=== PATIENT | male | born 1995 ===

== ENCOUNTER 2024-03-07 05:30 | Day surgery (SDC) | payer OTHER ==
[2024-03-05 14:20] LABS: HEMATOCRIT 39.9 % (39.0-48.0); HEMOGLOBIN 13.5 g/dL (13-16.00); MEAN CELL VOLUME 82.5 fL (80.0-100.00); MEAN CORPUSCULAR HEMOGLOBIN 27.8 pg (27.00-32.0); MEAN CORPUSCULAR HGB CONC 33.8 g/dl (32.0-36.0); PLATELET COUNT 315 K/uL (150-450); RED BLOOD COUNT 4.84 M/uL (4.00-6.00); RED CELL DISTRIBUTION WIDTH 13.5 % (11.5-14.5)
[2024-03-05 14:28] LABS: URINE APPEARANCE Clear; URINE BILIRRUBIN Negative (NEGATIVE); URINE BLOOD Negative; URINE COLOR Dark Yellow; URINE GLUCOSE Negative (NEGATIVE); URINE KETONE 15 (NEGATIVE); URINE LEUKOCYTE Trace; URINE NITRATE Negative; URINE PROTEIN 30 (NEGATIVE)
[2024-03-05 14:29] LABS: URINE BACTERIA 16.3 uL (0.0-1933); URINE EPITHELIAL CELLS 3.8 uL (0.0-38.8); URINE RBC 77.1 uL (0.0-20.8); URINE WBC 16.2 uL (0.0-23.2)
[2024-03-05 14:33] LABS: URINE CAST 0.45 uL (0.0-1.40)
[2024-03-05 14:36] LABS: INR 1.19; PARTIAL THROMBOPLASTIN TIME 33.6 SECONDS (22.0-34.0); PROTHROMBIN TIME 12.8 SECONDS (9.0-11.5)
[2024-03-05 14:52] LABS: CREATININE SERUM 1.37 mg/dL (0.70-1.30); GFR 62.81; POTASSIUM 4.07 mEq/L (3.5-5.1)
[2024-03-07] MEDS ORDERED: CEFAZOLIN SODIUM 1,000 MG VIAL ONE (07:35)
[2024-03-07] MEDS ORDERED: CHLORHEXIDINE GLUCONATE 120 ML BOTTLE TOP ONE (07:37)
[2024-03-07] MEDS ORDERED: IOVERSOL 320 MG/ML - 50 ML VIAL IV ONE (08:55)
[2024-03-07] MEDS ORDERED: BUPIVACAINE HCL/MPF 0.5% 30ML VIAL ONE (09:40)
[2024-03-07] MEDS ORDERED: SUGAMMADEX SODIUM 200 MG/2 ML VIAL IV ONE (10:40)
== END 2024-03-07 15:05 | disposition home or self-care (01) ==
LOC: CIR.AMB 05:30
PROVIDERS: ATTEND Urology
DX: C62.11 Malignant neoplasm of descended right testis (principal); N13.30 Unspecified hydronephrosis; J45.909 Unspecified asthma, uncomplicated; F41.9 Anxiety disorder, unspecified; H52.209 Unspecified astigmatism, unspecified eye; J32.9 Chronic sinusitis, unspecified; R33.9 Retention of urine, unspecified